=== PATIENT | male | born 1990 | race African-American/Black ===

== ENCOUNTER 2019-10-31 02:58 | Emergency (ER) | payer SELFPAY ==
[~2019-10-31] VITALS: Ht 175.3 cm; Wt 85.0 kg
[2019-10-31] MEDS ORDERED: SODIUM BICARBONATE 8.4% MEQ/ML 50ML VIAL IV ONE (03:00)
[2019-10-31] MEDS ORDERED: EPINEPHRINE 0.1MG/ML (1:10,000) 10ML SYR ONE ×3 (03:00→03:28)
[2019-10-31] MEDS ORDERED: ATROPINE SULFATE 1MG/10ML SYR ONE (03:00)
[2019-10-31] MEDS ORDERED: CALCIUM CHLORIDE 1GM/10ML SYR IV ONE (03:00)
[2019-10-31 03:01] VITALS: BP 0/0
[2019-10-31] MEDS ORDERED: SODIUM BICARBONATE 8.4% 1 MEQ/ML 50ML SYR IV ONE ×2 (03:11→03:40)
== END 2019-10-31 07:28 | disposition expired ==
LOC: ER 02:58
DX: I46.9 Cardiac arrest, cause unspecified (principal); J45.909 Unspecified asthma, uncomplicated
CPT/HCPCS: 31500; 36556; 92950; 99285; J0461; J3490